=== PATIENT | female | born 1960 | race Caucasian/White ===

== ENCOUNTER 2024-08-30 09:32 | Day surgery (SDC) | payer BC, SELFPAY ==
[2024-08-30] VITALS (14 sets, daily range): BP systolic 115–150; BP diastolic 69–94; BMI 26.1
[2024-08-30] MEDS: ZOFRAN ODT (ORALLY DISINTEGRATING) 4 MG PO (00:18)
[2024-08-30 00:52] LABS: % Basophils 0.2 % (0-2); % Eosinophils 3.6 % (0-6); % Immature Granulocytes 0.3 % (0-0.5); % Lymphocytes 17.9 % (20.5-51.1); % Monocytes 4.4 % (1.7-9.3); % Neutrophils 73.6 % (42.2-75.2); Absolute Eosinophils 0.5 10^3/uL (0-0.7); Absolute Lymphocytes 2.4 10^3/uL (1.2-3.4); Absolute Monocytes 0.6 10^3/uL (0.1-0.6); Absolute Neutrophils 9.8 10^3/uL (1.4-6.5); Hematocrit 44.4 % (37.0-47.0); Hemoglobin 14.8 g/dL (12.0-16.0); Mean Corp Hgb Conc. 33.3 g/dL (33.0-37.0); Mean Corpuscular Hgb 29.7 pg (27.0-31.0); Mean Corpuscular Volume 89.2 fL (81.0-99.0); Mean Platelet Volume 9.9 fL (7.4-10.4); Nucleated Red Blood Cells % 0 %; Platelet Count 227 10^3/uL (130-400); Red Blood Cell Count 4.98 10^6/uL (4.20-5.40); Red Cell Dist. Width 12.2 % (11.5-14.5); White Blood Cell Count 13.3 10^3/uL (4.8-10.8)
[2024-08-30 01:02] LABS: ALT (SGPT) 35 U/L (0-35); AST (SGOT) 36 U/L (14-36); Albumin 5.7 g/dl (3.5-5.0); Alkaline Phosphatase 82 U/L (38-126); Blood Urea Nitrogen 27 mg/dl (7-17); Calcium 9.5 mg/dl (8.4-10.2); Carbon Dioxide 26 mmol/L (22-30); Chloride 104 mmol/L (98-107); Glucose 118 mg/dl (70-99); Potassium 3.9 mmol/L (3.5-5.1); Sodium 143 mmol/L (135-145); Total Bilirubin 0.5 mg/dl (0.2-1.3); Total Protein 9.3 g/dl (6.3-8.2); eGFR > 60.00
--- NOTE | 2024-08-30 01:05 | ED.GENMED ---
History of Present Illness
General
Chief Complaint: Chest Pain
Source: patient
Exam Limitations: none
Time Seen by Provider: 08/30/24 00:54
Nursing documentation reviewed up to this point in time: agreed with
History of Present Illness
History of Present Illness:
This is a 63-year-old woman who has history of GERD, takes no medicines on a daily basis but does admit to intermittent episodes of 'GERD' exacerbations that generally occur once a month and generally occur after consuming chicken where she develops
abrupt lower substernal chest discomfort, nausea and vomiting. Prompt regurgitation of water after swallowing and occasionally prompt regurgitation of antacids such as Tums after swallowing. Usually these episodes resolve within 1/2-hour to an
hour. She takes Pepcid sporadically but these episodes. Tonight however she developed similar episode right after dinner which consisted of consuming pork.
She has had multiple episodes of prompt regurgitation of water, prompt regurgitation of Tums and antacids as well as intermittent regurgitation of saliva. She thought that she was feeling improved but lower substernal chest pain and regurgitation
of saliva returned promptly after lying down to bed.
Initial such episode occurred in 2019 while at work and she was taken to a different ED where she underwent unremarkable cardiac evaluation. 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
unremarkable stress test.
She takes no medicines on a daily basis.
Non-smoker.
Occasional alcohol use.
As above, she admits that these episodes have become more frequent over the past year occurring perhaps once every 3 to 4 weeks.
This is the first episode that is been prolonged/protracted.
Past History
Past History
ED Past Medical History: GERD
ED Past Surgical History: None
Social History
Tobacco: Non-smoker
Alcohol: Occasional
Drug: None
Personal:
Living: with family
Family History
Family History: Other (Noncontributory)
Phy Exam
Physical Exam
Physical Exam:
GENERAL: 63-year-old woman appears her stated age, awake and alert, appears moderately uncomfortable related to pain. Hemodynamically stable. is accompanying.
EYE: . anicteric
NECK: Supple, nontender, no meningismus, no significant adenopathy.
ENT: oral mucosa is moist. No rhinorrhea.
CARDIAC: Regular rate and rhythm. no murmur.
LUNGS: Clear breath sounds bilaterally, no acute respiratory distress, no wheezes/rales/rhonchi
ABDOMEN: Soft, nondistended, without focal tenderness, no r/g, no cvat. normoactive BS.
NEUROLOGICAL: Alert and oriented x3, no focal neuro deficits. Gait is steady.
SKIN: Warm and dry, normal color, skin intact. No rash.
MUSCULOSKELETAL: No C/C/E. peripheral pulses are full and equal b/l. No palpable tenderness.
PSYCH: Normal and appropriate interaction.
Scores
Heart Score for Chest Pain Patients
STEMI patient?: No
History: Slightly or Non-Suspicious
ECG: Nonspecific Repolarization
Age: >45 - <65 years
Risk Factors: No Risk Factors
Troponin: </= Normal Limit
Heart Score for Chest Pain Patients: 2
Heart Score Risk: 2.5% MACE over next 6 weeks
Course
Orders/Labs/Results
Orders:
Orders
08/30/24 00:08
Electrocardiogram (*1) Urgent
Reason for Study: Chest Pain
EKG- Treatment ONCE
08/30/24 00:14
Ondansetron Orally Disint [Zofran Odt (Orally Disintegrating)] 4 mg .ROUTE .STK-MED ONE
08/30/24 00:15
Ondansetron Orally Disint [Zofran Odt (Orally Disintegrating)] 4 mg PO NOW STA
08/30/24 00:40
CMP [Comprehensive Metabolic Panel] Urgent
Complete Blood Count/With Diff Urgent
Lipase Urgent
Comment: ADD ON
Troponin I Urgent
08/30/24 00:56
Add On- LAB Urgent
Tests Added?: lipase
08/30/24 01:04
0.9% Sodium Chloride 1000 ml [Nss] 1,000 ml IV BOLUS
Glucagon [GlucaGen] 1 mg IV NOW STA
Pantoprazole [Protonix IV] 40 mg IV NOW STA
08/30/24 01:28
CR Chest - 2 Views Urgent
Comment:
Reason For Exam: CP, concern for esophageal food impaction
08/30/24 02:27
Glucagon [GlucaGen] 1 mg IV NOW STA
08/30/24 04:22
0.9% Sodium Chloride 1000 ml [Nss] 1,000 ml IV 250 mls/hr
08/30/24 04:56
Morphine Sulfate 2 mg IV NOW STA
Abnormal Lab Results
08/30/24
00:40
WBC 13.3 H 10^3/uL
(4.8-10.8)
Absolute Neuts (auto) 9.8 H 10^3/uL
(1.4-6.5)
Lymphocytes % 17.9 L %
(20.5-51.1)
BUN 27 H mg/dl
(7-17)
Glucose 118 H mg/dl
(70-99)
Total Protein 9.3 H g/dl
(6.3-8.2)
Albumin 5.7 H g/dl
(3.5-5.0)
Lipase 404 H U/L
(23-300)
08/30/24 00:40
08/30/24 00:40
Vital Signs
Initial and Last Documented VS:
Initial Vital Signs
Temp Pulse Resp BP Pulse Ox
98.2 F 84 24 150/82 100
08/30/24 00:09 08/30/24 00:09 08/30/24 00:09 08/30/24 00:09 08/30/24 00:09
Last Documented Vital Signs
Temp Pulse Resp BP Pulse Ox
98.2 F 78 12 115/70 97
08/30/24 00:09 08/30/24 04:00 08/30/24 04:00 08/30/24 04:00 08/30/24 04:00
MDM/Problems Addressed
Differential Diagnosis Includes:
Patient exam significantly concerning for esophageal food impaction. Likely distal esophageal food impaction.
ACS is another consideration, pancreatitis.
She has had no hematemesis, nothing to suggest Boerhaave's.
EKG shows flipped T waves anteriorly, borderline prolonged QT otherwise unremarkable. No old EKGs to compare.
Labs show mildly elevated white blood cell count of 13, mildly elevated BUN of 27 with normal creatinine.
Troponin is normal.
Patient continues with significant lower substernal discomfort, intermittent regurgitation of saliva.
Will initiate IV fluids, given IV dose of Protonix and trial IV glucagon.
Chronic conditions affecting care: Other (GERD)
*Radiology
Radiology exam reviewed: preliminary read by ED provider (Chest x-ray is unremarkable. Clear lung karimi. No evidence of hiatal hernia.)
*Pulse Oximetry
Patient hypoxic: no
*EKG
Interpreted by ED Provider?: Yes
Interpretation: abnormal
Comparison EKG: no comparison EKG present
Rate: normal
Rhythm: sinus
Stewart: normal axis
Interval: long QT (Borderline long QT)
QRS Pattern: normal QRS
Ischemia: T-wave inversion (Flipped T waves anteriorly.)
*Steward/Stewardess Interpretation
Rate: normal
Interpretation: normal
Rhythm: sinus
*Critical Care Note
Total Time (30-74mins, 75-104mins- exclusive of procedures): Not Applicable
Update Note
Update Note:
04:20
Despite 2 doses of IV glucagon, Protonix, IV fluids, patient continues with intermittent regurgitation of saliva and after a trial with small sip of water, promptly regurgitates the water within a minute.
Chest x-ray is unremarkable.
I have placed a call to GI.
Will continue IV fluids.
ED Attending Note
-
Portions of this chart may have been created with voice recognition software.� Occasional wrong word or��sound alike� substitutions may have occurred due to the inherent limitations of voice recognition software.
Discharge Plan
Departure
Patient Disposition: GI LAB
Date of Disposition: 08/30/24
Time of Disposition: 05:00
Admit to doctor: Liya
Presentation/result/management discussed w/ accepting MD/DO: GI
Condition: Fair
Discharge Problem:
Food impaction of esophagus
Referrals:
Denisa Whitney MD [Family Provider] -
Interventions
Interventions:
*Risk Screen - Suicide Last Done: 08/30/24 00:13
*General Assessment Last Done: 08/30/24 01:10
*Neglect/Abuse Screening Last Done: 08/30/24 00:13
ED- Fall Risk Assessment Last Done: 08/30/24 01:10
*ED COVID-19 Vaccine History Last Done: 08/30/24 01:10
JJ-Axsmba-Fwyevjteax Assessment Last Done: 08/30/24 01:10
ED- Cardiac Assessment Last Done: 08/30/24 01:10
Discharge Date and Time
Print Language: ROMANSH
[2024-08-30 01:11] LABS: Troponin I < 0.012 ng/ml
[2024-08-30] MEDS: PROTONIX IV 40 MG IV (01:18)
[2024-08-30] MEDS: GlucaGen 1 MG IV ×2 (01:19→03:00)
[2024-08-30] MEDS: NSS 1000 IV ×2 (01:19→04:38)
[2024-08-30 01:26] LABS: Lipase 404 U/L (23-300)
[2024-08-30] MEDS: MORPHINE SULFATE 2 MG IV (05:04)
--- NOTE | 2024-08-30 08:19 | CON.GI ---
Consultation
-
Date/Time Consultation Requested: 08/30/2024
Date/Time Consultation Performed: 08/30/2024
Requesting Provider: Emergency room
Performing Provider: Dr. Nickerson
Reason for Consultation: Food impaction
Medical History
Chief Complaint / HPI
Chief Complaint: Food impaction
History of Present Illness:
Natasha is a 63-year-old female with no significant past medical history not on any medication other than a rare Pepcid who comes in after eating salad and pork loin with the sensation of a food impaction. She is unable to tolerate secretions and
regurgitates up secretions as they build up. She is somewhat comfortable but occasionally has pressure in her chest. She states this occurs 1-2 times a month and has since roughly 2019. She has never had an endoscopy or seen a GI doctor. She
denies any heartburn symptoms in between. She has no dysphagia to liquids. No anorexia or weight loss. No family history of EOE or esophageal cancer. She has never been on long-term PPI. She did have a cardiac workup in 2019 when this started
with her cousin who is a stereoptician which she states was negative. He suggested she take a PPI which she did not. 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 She has had labs in
the last year which she states were unremarkable.
She denies any nausea or vomiting. No abdominal pain and her bowel movements are regular brown with no blood. She has never had colon cancer screening.
Past Medical History
Past Medical History: None
Past Surgical History: None
Social History
Tobacco: Non-Smoker
Alcohol: Occasional
Drug: None
Personal:
Living: With Family
Employment: Employed
Family History
Family History: Reviewed & Not Pertinent
Allergies / Home Medications
Allergy/AdvReac Type Severity Reaction Status Date / Time
No Known Allergies Allergy Verified 08/30/24 00:12
Review of Systems
-
All other systems: A 12 pt ROS was Negative except as stated above in HPI
Vital Signs
Temp Pulse Resp BP Pulse Ox
98.2 F 75 11 128/79 97
08/30/24 00:09 08/30/24 07:07 08/30/24 07:07 08/30/24 07:07 08/30/24 07:07
Physical Exam
Exam
General: No Apparent Distress (Occasional chest discomfort from the food impaction) and Comfortable
HEENT: Anicteric
Respiratory: Clear
Cardiac: S1/S2
GI: Soft, Non Tender and Non Distended
Neuro: AO x 3
Psych: Calm
Results
WBC 13.3 10^3/uL (4.8-10.8) H 08/30/24 00:40
Hgb 14.8 g/dL (12.0-16.0) 08/30/24 00:40
Hct 44.4 % (37.0-47.0) 08/30/24 00:40
MCV 89.2 fL (81.0-99.0) 08/30/24 00:40
Plt Count 227 10^3/uL (130-400) 08/30/24 00:40
Absolute Neuts (auto) 9.8 10^3/uL (1.4-6.5) H 08/30/24 00:40
Sodium 143 mmol/L (135-145) 08/30/24 00:40
Potassium 3.9 mmol/L (3.5-5.1) 08/30/24 00:40
Chloride 104 mmol/L (98-107) 08/30/24 00:40
Carbon Dioxide 26 mmol/L (22-30) 08/30/24 00:40
BUN 27 mg/dl (7-17) H 08/30/24 00:40
Creatinine 0.7 mg/dL (0.6-1.0) 08/30/24 00:40
Calcium 9.5 mg/dl (8.4-10.2) 08/30/24 00:40
Total Bilirubin 0.5 mg/dl (0.2-1.3) 08/30/24 00:40
AST 36 U/L (14-36) 08/30/24 00:40
ALT 35 U/L (0-35) 08/30/24 00:40
Alkaline Phosphatase 82 U/L (38-126) 08/30/24 00:40
Lipase 404 U/L (23-300) H 08/30/24 00:40
Diagnostic Image Results:
Chest x-ray -no acute disease, 08/30/2024
Prior GI Procedures: Never had any GI procedures and has never seen GI outpatient
EGD:
Colonoscopy:
Assessment / Plan
-
Natasha is a 63-year-old female with no significant past medical history not on any medications who comes in with a food impaction who has chronic intermittent food impactions only to solids that she force regurgitates 1-2 times a month who has never
seen GI and has never had any endoscopies or colonoscopies
# Solid food dysphagia with food impaction -we will do urgent EGD with general sedation this morning to relieve the food impaction and determine any pathology causing this intermittent dysphagia
-- Patient has no alarm features like weight loss appetite change
-- She is not on a PPI at home and we discussed anyone with food impactions should be on long-term acid suppression
- -We will have her follow-up as an outpatient in our office for long-term management
Data Reviewed
-
Radiology: Image Personally Visualized and interpreted
-
-
Thank you for consultation and allowing me to participate in the patient's care. Please call the oncology admin GI physician during the after hours with any questions or concerns.
== END 2024-08-30 11:14 | disposition home or self-care (01) ==
LOC: GI-IN 09:32
PROVIDERS: ATTENDING PHYSICIAN Internal Medicine; EMERGENCY PHYSICIAN Emergency Medicine; FAMILY PHYSICIAN Internal Medicine
DX: T18.128A Food in esophagus causing other injury, initial encounter (principal); W44.F3XA Food entering into or through a natural orifice, initial encounter; K44.9 Diaphragmatic hernia without obstruction or gangrene; K31.89 Other diseases of stomach and duodenum; T18.108A Unspecified foreign body in esophagus causing other injury, initial encounter; R13.14 Dysphagia, pharyngoesophageal phase
CPT/HCPCS: 43247; 43239; 88305; 71046; 80053; 83690; 84484; 85025; 93005; 96361; 96374; 96375; 96376; 99285; J1610